=== PATIENT | female | born 1975 | race Two or more races ===

== ENCOUNTER 2016-07-12 20:25 | Emergency (ER) | payer SELFPAY ==
[~2016-07-12] VITALS: Ht 165.1 cm; Wt 75.0 kg
[2016-07-12 20:25] VITALS: BP 126/82
== END 2016-07-12 20:37 | disposition left against medical advice (07) ==
LOC: ER 20:25
DX: F10.120 Alcohol abuse with intoxication, uncomplicated (principal)